=== PATIENT | male | born 1985 | race Caucasian/White ===

== ENCOUNTER 2017-06-08 18:11 | Emergency (ER) | payer OTHER ==
[~2017-06-08] VITALS: Ht 175.3 cm; Wt 75.0 kg
[2017-06-08 18:16] VITALS: BP 150/79; PULSE 85; RESP 14; O2SAT 98
--- NOTE | 2017-06-08 18:41 | ED.REPORT ---
HPI-Extremity Problem Lower Date of Service Jun 08, 2017 ED Provider: Ross Rosales MD Patient is a 31 year old male who presents to the ED complaining of left ankle pain after a fall two days ago. Associated symptoms include inability to bear weight or walk, pain up the left leg below the knee, swelling, bruising and numbness across the dorsum of the left foot. The patient reports that he inverted his ankle when he rolled it after stepping into a hole. He went to a clinic where X-rays of his ankle were taken and discharged with instructions stating to return if the swelling hadn't gone down by today. Patient reports that the swelling has only gotten worse even though he has been using crutches and elevating the leg. Nursing Notes Stated Complaint: SWELLING ON LEFT FOOT L&I OPEN CLAIM Chief Complaint: Extremity Trauma Nursing Notes Reviewed: Yes Allergies: Coded Allergies: No Known Allergies (Unverified , 06/08/17) No Active Prescriptions or Reported Meds General Time Seen by MD: 18:40 Chief Complaint Ankle injury left Hx Obtained From: Patient Arrived By: Walk-in Onset Occurred: 2 days ago Symptom Duration: Since onset Caused by: Fall on ground Location: : Ankle left Quality: Pleuritic Severity: Current: Moderate Associated with: Reports: Numb extremities, Swelling, Unable to bear weight, Unable to walk Exacerbated by: Movement Pertinent Negative: Relieved by nothing Recent Healthcare: Recent doctor visit Past Medical History Past Medical History none reported Smoking History Unknown if Ever Smoker Social History Other Social History: Smokeless tobacco Ambulatory Status Independent Review of Systems Review of Systems Note: +unable to bear weight Constitutional: Denies: Chills, Fever Musculoskeletal: Reports: Extremity pain, Extremity swelling Skin: Reports Bruising, Denies Itching, Denies Rash Neurologic: Reports: Numbness, Problem walking, Denies: Weakness Complete sys rev & neg: except as marked. Respiratory: Denies: Non-productive cough, Shortness of breath Physical Exam Initial Vital Signs Vital Signs (First) Date Time Temp Pulse Resp B/P Pulse Ox O2 Delivery O2 Flow Rate FiO2 06/08/17 18:16 36.5 85 14 150/79 98 Room Air Initial VS: Reviewed LOWER EXTREMITIES: swollen ankle up to the upper calf warm ecchymosis from mid calf down to ankle tender over the proximal fibula ANKLE: tenderness over the left lateral malleolus mild tenderness over the medial malleolus difficult to palpate pulses due to swelling but pulses are present General/Constitutional: Awake, Alert Skin: Atraumatic, Color NL, No rash, Warm, Dry Neurologic: Oriented X3, Speech NL, No motor deficits, No sensory deficits Head / Eyes: Atraumatic, Normocephalic, PERRL, EOMI Upper Extremity / MS: Atraumatic, Full range of motion Psychiatric: Affect NL, Mood NL Interpretation & Diagnostics Interpretation & Diagnostics: VENOUS DUPLEX US: IMPRESSION: No sonographic evidence of deep venous thrombus in the left lower extremity. Dictated by: Brian Henry M.D. on 06/08/2017 at 19:52 Approved by: Brian Henry M.D. on 06/08/2017 at 19:53 X-Ray Interpretation Xray Interpretation: IMPRESSION: No acute fractures or dislocations. Dictated by: Brian Henry M.D. on 06/08/2017 at 20:17 Approved by: Brian Henry M.D. on 06/08/2017 at 20:18 X-Ray Ordered: Tibia fibula left Interpretation / Wet Read by: Interpret - Radiologist Interpretation: Normal exam Xray Interpretation: IMPRESSION: No acute fractures. Dictated by: Brian Henry M.D. on 06/08/2017 at 20:16 Approved by: Brian Henry M.D. on 06/08/2017 at 20:17 X-Ray Ordered: Foot left Interpretation / Wet Read by: Interpret - Radiologist Interpretation: Normal exam Xray Interpretation: IMPRESSION: Possible minimally displaced avulsion fracture of the medial talus. Dictated by: Brian Henry M.D. on 06/08/2017 at 20:40 Approved by: Brian Henry M.D. on 06/08/2017 at 20:41 X-Ray Ordered: Ankle left Interpretation / Wet Read by: Interpret - Radiologist Re-Eval/Medical Decision Re-Evaluation/Progress : Time of Eval: 20:57 Re-Evaluation/Progress Note: Discussed ultrasound and X-ray results and plan for discharge. Patient understands and agrees to plan. All questions were addressed. Counseled Regarding: Diagnosis, Lab results, Need for follow-up, When/why to return to ED Discharge & Departure Impression: Primary Impression: Ankle sprain Encounter type: initial encounter Involved ligament of ankle: unspecified ligament Laterality: left Qualified Code: S93.402A - Sprain of unspecified ligament of left ankle, initial encounter Disposition: Home Discharge Condition All VS Reviewed: Yes Condition: Stable Patient Instructions: Ankle Sprain (GEN) Additional Instructions: Your emergency department visit consisted of an interview, examination, ultrasound and X-rays. There is a tiny fragment that may be bone pulled away with a ligament during the sprain. Your ultrasound was normal and reassuring. There was no evidence of a blood clot. You should continue to treat your leg as initially instructed- splint and no wt bearing. Keep weight off of the leg. Keep it elevated. You can continue to take your pain medication as prescribed. Keep your follow up appointment with the L&I doctor. Return to the emergency department if you develop any new or concerning symptoms. Referrals: Jerel Damian DO (PCP) Sanjay Attestation Portions of this note were transcribed by Ciera Holland. I, Dr. Rosales personally performed the history, physical exam and medical decision-making; I reviewed and confirmed the accuracy of the information in the transcribed note. Signed by: Sanjay Almonte, 06/08/17 copies to: Jerel Damian Donald L MD Jun 08, 2017 18:40 Chaya Holland Jun 08, 2017 18:52
--- NOTE | 2017-06-08 19:54 | DRSVH ---
PROCEDURE: US VEINOUS LEG DUPLEX UNILATERAL, LEFT INDICATIONS: leg swelling and inury TECHNIQUE: Real-time imaging, as well as color and pulse Doppler interrogation, were performed of the lower extr emity deep veins from the inguinal ligament to the popliteal fossa. COMPARISON: None. FINDINGS: The deep veins are normally compressible, and free of intraluminal thrombus. Color and pu lse Doppler demonstrate normal phasic intraluminal flow. IMPRESSION: No sonographic evidence of deep venous thrombus in the left lower extremity. Dictated by: Brian Henry M.D. on 06/08/2017 at 19:52 Approved by: Brian Henry M.D. on 06/08/2017 at 19:53
--- NOTE | 2017-06-08 20:19 | DRSVH ---
PROCEDURE: X-RAY LEFT TIBIA/FIBULA, TWO VIEWS ([id number]) INDICATIONS: ankle and foot injry TECHNIQUE: 2 views of the tibia and fibula were acquired. COMPARISON: None. FINDINGS: Bones: No fractures or dislocations. No suspicious bony lesions. Soft tissues: No suspicious soft tissue calcifications or masses. IMPRESSION: No acute fractures or dislocations. Dictated by: Brian Henry M.D. on 06/08/2017 at 20:17 Approved by: Brian Henry M.D. on 06/08/2017 at 20:18
--- NOTE | 2017-06-08 20:19 | DRSVH ---
PROCEDURE: X-RAY LEFT FOOT COMPLETE, MINIMUM THREE VIEWS ([id number]) INDICATIONS: ankle and foot injry TECHNIQUE: 3 views of the foot were acquired. COMPARISON: None. FINDINGS: Bones: No fractures or dislocations. No suspicious bony lesions. Soft tissues: No tibiotalar joint effusion. Achilles tendon appears normal. IMPRESSION: No acute fractures. Dictated by: Brian Henry M.D. on 06/08/2017 at 20:16 Approved by: rBian Henry M.D. on 06/08/2017 at 20:17
[2017-06-08] MEDS ORDERED: oxyCODONE-Acetamin 5-325 mg Tablet PO ONE (20:25)
--- NOTE | 2017-06-08 20:42 | DRSVH ---
PROCEDURE: X-RAY LEFT ANKLE, MINIMUM THREE VIEWS ([id number]) INDICATIONS: ankle and foot injry TECHNIQUE: 3 views of the ankle were acquired. COMPARISON: None. FINDINGS: Bones: Possible irregularity of the medial aspect of the tail is to represent an avulsion fracture or the sequelae of previous trauma. Otherwise no bony abnormalities. Otherwise normal ankle alignment. Soft tissues: No tibiotalar joint effusion. Achilles tendon appears normal. Diffuse left ankle sof t tissue swelling. IMPRESSION: Possible minimally displaced avulsion fracture of the medial talus. Dictated by: Brian Henry M.D. on 06/08/2017 at 20:40 Approved by: Brian Henry M.D. on 06/08/2017 at 20:41
[2017-06-08 21:13] VITALS: BP 137/82; PULSE 70; RESP 16; O2SAT 100
== END 2017-06-08 21:13 | disposition home or self-care (01) ==
LOC: SED 18:11
DX: S93.402A Sprain of unspecified ligament of left ankle, initial encounter (principal); X50.0XXA Overexertion from strenuous movement or load, initial encounter; Y93.9 Activity, unspecified; Y92.69 Other specified industrial and construction area as the place of occurrence of the external cause; Y99.0 Civilian activity done for income or pay